=== PATIENT | male | born 1955 | race Hispanic/Latino ===

== ENCOUNTER 2023-05-16 11:12 | Emergency (ER) | payer OTHER ==
[~2023-05-16] VITALS: Ht 182.9 cm; Wt 127.0 kg
[2023-05-16] MEDS ORDERED: PREDNISONE 20 MG TABLET PO ONE (15:30)
[2023-05-16] MEDS ORDERED: IBUPROFEN 600 MG TABLET PO ONE (15:30)
[2023-05-16] MEDS ORDERED: ACET-2079 PO ×2 (16:40→16:53)
[2023-05-16 16:58] VITALS: BP 156/88; PULSE 58; RESP 14; O2SAT 98
== END 2023-05-16 16:59 | disposition home or self-care (01) ==
LOC: EDH 11:12
DX: S83.91XA Sprain of unspecified site of right knee, initial encounter (principal); I10 Essential (primary) hypertension; W18.39XA Other fall on same level, initial encounter; Y93.89 Activity, other specified; Y92.89 Other specified places as the place of occurrence of the external cause; Y99.8 Other external cause status
CPT/HCPCS: 73562; 73590; 93971